=== PATIENT | male | born 2000 | race Caucasian/White ===

== ENCOUNTER 2021-07-05 09:29 | Emergency (ER) | payer OTHER ==
[~2021-07-05] VITALS: Ht 180.3 cm; Wt 69.7 kg
[2021-07-05] MEDS ORDERED: NS 1,000 ML IV ONE (10:10)
[2021-07-05] MEDS ORDERED: GI COCKTAIL 50ML BTL(HYOSCYAMINE/MAALOX/LIDOCAINE VISCOUS)(1:3:1) PO ONE (10:10)
[2021-07-05 10:28] LABS: BASO # 0.1 10^3/uL (0.0-0.2); BASO % 0.9 % (0.0-1.0); EOS # 0.1 10^3/uL (0.0-0.5); EOS % 1.2 % (0.0-3.0); HEMOGLOBIN 15.7 g/dl (13.5-17.5); LYMPH # 1.7 10^3/uL (1.5-5.0); LYMPH % 24.8 % (24.0-44.0); MEAN CORPUSCULAR HEMOGLOBIN 31.5 pg (27.0-33.0); MEAN CORPUSCULAR HGB CONC 35.7 g/dl (32.0-36.5); MEAN CORPUSCULAR VOLUME 88.4 fl (80.0-96.0); MONO # 0.5 10^3/uL (0.0-0.8); MONO % 7.3 % (2.0-8.0); NEUTROPHILS # 4.5 10^3/uL (1.5-8.5); NEUTROPHILS % 65.7 % (36.0-66.0); PLATELET COUNT, AUTOMATED 235 10^3/uL (150-450); RED BLOOD COUNT 4.98 10^6/uL (4.30-6.10); WHITE BLOOD COUNT 6.8 10^3/uL (4.0-10.0)
[2021-07-05 10:57] LABS: ALBUMIN 4.4 GM/DL (3.2-5.2); ALT/SGPT 21 U/L (12-78); BILIRUBIN,DIRECT 0.2 MG/DL (0.0-0.2); BLOOD UREA NITROGEN 10 MG/DL (7-18); CALCIUM LEVEL 9.3 MG/DL (8.5-10.1); CARBON DIOXIDE LEVEL 27 MEQ/L (21-32); CHLORIDE LEVEL 108 MEQ/L (98-107); CK-MB VALUE MASS 1.4 NG/ML (<3.6); CPK CREATINE PHOSPHOKINASE 83 U/L (39-308); CREATININE FOR GFR 0.86 MG/DL (0.70-1.30); GLOMERULAR FILTRATION RATE > 60.0 (>60); GLUCOSE, FASTING 82 MG/DL (70-100); LIPASE 129 U/L (73-393); MB/CK RELATIVE INDEX 1.69 (< OR =4); POTASSIUM SERUM 4.5 MEQ/L (3.5-5.1); SODIUM LEVEL 139 MEQ/L (136-145); TOTAL PROTEIN 7.6 GM/DL (6.4-8.2); TROPONIN I < 0.02 NG/ML (< 0.10)
--- NOTE | 2021-07-05 10:59 | REP ---
INDICATION: RUQ TTP COMPARISON: None. TECHNIQUE: Real time clifford scale ultrasound examination using curved array transducer. FINDINGS: Liver is normal in contour, size, and echogenicity without focal hepatic lesions identified. Pancreas is incompletely evaluated due to interposed bowel gas. The gallbladder is normal and without gallstones, wall thickening, or pericholecystic fluid. No biliary ductal dilatation is appreciated and the common bile duct measures 3.0 mm diameter. Right kidney is normal in reniform shape without hydronephrosis and measures 10.9 x 5.5 x 3.5 cm. No ascites in the visualized right upper quadrant. IMPRESSION: Normal limited right upper quadrant ultrasound <Electronically signed by Donovan Muhammad > 07/05/21 [id number]
--- NOTE | 2021-07-05 12:18 | REP ---
INDICATION: Abdominal Pain. COMPARISON: None. TECHNIQUE: Supine and erect views of the abdomen, frontal view chest. FINDINGS: There is no evidence of free intraperitoneal air. There is air seen diffusely throughout the GI tract. Multiple mildly dilated small bowel loops are seen in the mid abdomen with a moderately dilated loop on the left. Findings could represent ileus versus partial small bowel obstruction. A calcific density in the left pelvis measures approximately 5 mm in diameter. This could potentially represent a distal left ureteral calculus. No infiltrate is seen in either lung. The heart and mediastinum are within normal limits. IMPRESSION: Mild to moderately dilated small bowel loops in the mid abdomen, more so to the left of midline. Findings may indicate ileus versus partial small bowel obstruction. A 5 mm calcific density in the left pelvis could potentially represent a calculus in the distal left ureter. <Electronically signed by Declan Joshi > 07/05/21 [id number]
[2021-07-05] MEDS ORDERED: ISOVUE-370 76% 100ML VIAL As Ordered ONE (12:33)
--- NOTE | 2021-07-05 13:28 | REP ---
INDICATION: r/o bowel obstruction COMPARISON: Plain films today. TECHNIQUE: CT Scan of the abdomen and pelvis was performed with intravenous administration of 100 cc of Isovue 370, without oral contrast. Sagittal and coronal reconstruction images are performed. FINDINGS: Lung bases: Unremarkable. Liver: Normal Gallbladder: Unremarkable. Spleen: Normal. Adrenals: Normal. Pancreas: Normal. Kidneys: Normal. No hydronephrosis or ureteral calculus. Small and large bowel: There is moderate intermittent small bowel dilatation without a focal transition point of obstruction, consistent with a generalized small bowel ileus. Mild air and fecal material scattered throughout the colon. There is no free air. Free fluid: None. Abdominal aorta: No aneurysm or dissection. Adenopathy: None. Appendix: Not inflamed. Osseous structures: Unremarkable. Pelvis: No mass. IMPRESSION: Findings most consistent with a generalized ileus. <Electronically signed by Declan Joshi > 07/05/21 [id number]
[2021-07-05 13:32] LABS: APPEARANCE, URINE CLEAR (CLEAR); BACTERIA, URINE AUTO NEGATIVE (NEGATIVE); BILIRUBIN, URINE AUTO NEGATIVE (NEGATIVE); BLOOD, URINE BLOOD NEGATIVE (NEGATIVE); COLOR, URINE STRAW (YELLOW); GLUCOSE, URINE (UA) AUTO NEGATIVE (NEGATIVE); KETONE, URINE AUTO NEGATIVE (NEGATIVE); LEUKOCYTE ESTERASE, URINE AUTO TRACE (NEGATIVE); NITRITE, URINE AUTO NEGATIVE (NEGATIVE); PROTEIN, URINE AUTO NEGATIVE (NEGATIVE); RBC, URINE AUTO 1 /HPF (0-3); SQUAMOUS EPITHELIAL CELL UR AU 0 /HPF (0-6); UROBILINOGEN, URINE AUTO 0.2 mg/dL (0.0-2.0); WBC, URINE AUTO 5 /HPF (0-3)
[2021-07-05 14:09] VITALS: BP 127/62
== END 2021-07-05 14:13 | disposition home or self-care (01) ==
LOC: M ED 09:29
DX: K52.9 Noninfective gastroenteritis and colitis, unspecified (principal); K56.7 Ileus, unspecified; F17.210 Nicotine dependence, cigarettes, uncomplicated
CPT/HCPCS: 74021; 74177; 76705; 80048; 80076; 81001; 82550; 82553; 83690; 84484; 85025; 87086; 96360; 99284; Q9967